=== PATIENT | female | born 1975 | race Caucasian/White ===

== ENCOUNTER 2021-07-30 00:04 | Emergency (ER) | payer OTHER ==
[2021-07-30] MEDS ORDERED: BENZONATATE200 MG PO (03:07)
[2021-07-30] MEDS ORDERED: PREDNISONE 10 M10 MG PO (03:07)
== END 2021-07-30 03:14 | disposition home or self-care (01) ==
LOC: ER1 00:04
DX: B34.9 Viral infection, unspecified (principal); F17.210 Nicotine dependence, cigarettes, uncomplicated; Z88.2 Allergy status to sulfonamides; Z20.822 Contact with and (suspected) exposure to COVID-19
CPT/HCPCS: 0240U; 71045; 87081; 87880; 94664; 96372; 99283; J1100